=== PATIENT | male | born 1965 ===

== ENCOUNTER 2016-11-22 14:18 | Emergency (ER) | payer OTHER ==
[2016-11-22 14:36] VITALS: RESP 18; TEMP 97.8
--- NOTE | 2016-11-22 14:57 | ED PDOC ---
HPI: Hypertension/Hypotension Time Seen by Provider: 11/22/16 14:25 Chief Complaint (Nursing): High Blood Pressure Chief Complaint (Provider): high blood pressure History Per: Patient History/Exam Limitations: no limitations Onset/Duration Of Symptoms: Days (2) Additional Complaint(s): Pt. checking his blood pressure with his friend's wrist machine. Saw bp was up to 198 systolic. Pt. has no symptoms. No chest pain, dyspnea, weakness, headaches, dizziness, numbness, tingles. Past Medical History Reviewed: Nursing Documentation, Vital Signs Vital Signs: Last Vital Signs Temp 97.8 F 11/22/16 14:33 Pulse 92 H 11/22/16 14:33 Resp 18 11/22/16 14:33 BP 152/103 H 11/22/16 14:33 Pulse Ox 99 11/22/16 14:33 - Medical History PMH: No Chronic Diseases - Surgical History Surgical History: No Surg Hx - Family History Family History: States: Unknown Family Hx - Social History Current smoker - smoking cessation education provided: No Alcohol: None Drugs: Denies - Allergies Allergies/Adverse Reactions: Allergies Allergy/AdvReac Type Severity Reaction Status Date / Time No Known Allergies Allergy Verified 11/22/16 14:33 Review of Systems ROS Statement: Except As Marked, All Systems Reviewed And Found Negative Physical Exam - Reviewed Nursing Documentation Reviewed: Yes Vital Signs Reviewed: Yes - Physical Exam Appears: Positive for: Well, Non-toxic, No Acute Distress Head Exam: Positive for: ATRAUMATIC, NORMAL INSPECTION, NORMOCEPHALIC Skin: Positive for: Normal Color, Warm, DRY Eye Exam: Positive for: EOMI, Normal appearance, PERRL ENT: Positive for: Normal ENT Inspection Neck: Positive for: Normal, Painless ROM Cardiovascular/Chest: Positive for: Regular Rate, Rhythm Respiratory: Positive for: CNT, Normal Breath Sounds Gastrointestinal/Abdominal: Positive for: Normal Exam, Bowel Sounds, Soft. Negative for: Tenderness Back: Positive for: Normal Inspection. Negative for: L CVA Tenderness, R CVA Tenderness Extremity: Positive for: Normal ROM. Negative for: Tenderness, Pedal Edema Neurologic/Psych: Positive for: Alert, plumbing warehouse helper II-XII, Oriented. Negative for: Motor/Sensory Deficits - Laboratory Results Result Diagrams: 11/22/16 15:00 11/22/16 15:00 Interpretation Of Abn Labs: no acute - ECG ECG: Positive for: Interpreted By Me, Viewed By Me ECG Rhythm: Positive for: Normal QRS, Normal ST Segment, Sinus Rhythm O2 Sat by Pulse Oximetry: 99 Pulse Ox Interpretation: Normal - Progress ED Course And Treament: 1615: Stable. AAOx3. Pain free. Tolerated PO. FU with pcp. Disposition - Clinical Impression Clinical Impression: Hypertension - Patient ED Disposition Is Patient to be Admitted: No Counseled Patient/Family Regarding: Studies Performed, Diagnosis, Need For Followup - Disposition Referrals: [facility] [Outside] - 11/24/16 Disposition: Routine/Home Disposition Time: 16:16 Condition: STABLE Additional Instructions: Return if not better in 3 days. Instructions: Hypertension (ED) Forms: [facility] (Vietnamese) Print Language: TAMAZIGHT
[2016-11-22 15:21] LABS: BASO # 0.1 K/uL (0.0-0.2); BASO % 0.9 % (0.0-2.0); EOS # 0.1 K/uL (0.0-0.7); EOS % 0.8 % (0.0-4.0); HEMATOCRIT 46.1 % (35.0-51.0); LYMPH % 25.3 % (20.0-40.0); MEAN CELL VOLUME 85.6 fl (80.0-94.0); MEAN CORPUSCULAR HEMOGLOBIN 28.1 pg (27.0-31.0); MEAN CORPUSCULAR HGB CONC 32.8 g/dL (33.0-37.0); MEAN PLATELET VOLUME 8.5 fl (7.2-11.7); MONO # 0.6 K/uL (0.0-0.8); MONO % 7.6 % (0.0-10.0); NEUT % 65.4 % (50.0-75.0); NRBC % 0.1 % (0.0-0.0); RED CELL DISTRIBUTION WIDTH 14.1 % (11.5-14.5); WHITE BLOOD COUNT 7.7 K/uL (4.8-10.8)
[2016-11-22 15:37] LABS: BLOOD UREA NITROGEN 15 mg/dl (9-20); CALCIUM 9.3 mg/dL (8.4-10.2); CARBON DIOXIDE 27 mmol/L (22-30); CHLORIDE 101 mmol/L (98-107); GFR AFRICAN-AMERICAN > 60; GLUCOSE,RANDOM 100 mg/dL (75-110); POTASSIUM 4.2 MMOL/L (3.6-5.0); SODIUM 139 mmol/l (132-148)
[2016-11-22 16:55] VITALS: BP 150/94; PULSE 75; O2SAT 95
--- NOTE | 2016-11-23 09:27 | CARD ---
APPROVED REPORT EKG Measurement Heart [id number] <Conclusion> Normal sinus rhythm Normal ECG
== END 2016-11-22 16:55 | disposition home or self-care (01) ==
LOC: H.ER 14:18
DX: I10 Essential (primary) hypertension (principal)